=== PATIENT | male | born 1985 | race Caucasian/White ===

== ENCOUNTER 2016-11-10 21:58 | Emergency (ER) | payer SELFPAY ==
[~2016-11-10] VITALS: Ht 180.3 cm; Wt 83.9 kg
--- NOTE | 2016-11-10 21:58 | NUR ---
[facility], PREBOOK. TAKEN TO [facility]
[2016-11-10 21:59] VITALS: BP 151/90
--- NOTE | 2016-11-10 22:19 | NUR ---
Dr. Peguero evaluating patient
[2016-11-10 23:07] VITALS: BP 150/90
--- NOTE | 2016-11-10 23:07 | NUR ---
Patient discharged with v/s stable. Written and verbal after care instructions given and explained. Patient verbalized understanding. Police with in custody. All questions addressed prior to discharge. Advised to follow up with PMD.
== END 2016-11-10 23:07 ==
LOC: MED 21:58
DX: Z02.89 Encounter for other administrative examinations (principal); R03.0 Elevated blood-pressure reading, without diagnosis of hypertension; S00.12XA Contusion of left eyelid and periocular area, initial encounter; S00.511A Abrasion of lip, initial encounter; V89.2XXA Person injured in unspecified motor-vehicle accident, traffic, initial encounter; W22.11XA Striking against or struck by driver side automobile airbag, initial encounter; Y93.89 Activity, other specified; Y92.89 Other specified places as the place of occurrence of the external cause; Y99.8 Other external cause status
CPT/HCPCS: 90471; 90715; 99283